=== PATIENT | male | born 1960 | race Caucasian/White ===

== ENCOUNTER → 2016-09-22 | Outpatient (CLI) | payer MEDICARE ==
[~2016-09-22] MED LIST: APRESOLINE 10MG10 MG PO; ASPIRIN 32325 MG/TAB PO; ASPIRIN 81M81 MG/TA2 PO; ASPIRIN E.C. 8181 MG PO; CEPHALEXIN500 M1 PO; COREG12.5 MG PO; ENALAPRIL2.5 MG PO; EPA FISH OIL1000 MG PO; LIPITOR80 MG PO; LIVALO PO; MEDROL 4MG DOSPA4 MG PO; MEDROL4 MG PO; METOPROLOL TART25 MG PO; METOPROLOL25 MG PO; NO HOME MEDICATIONS; NORCO 325 MG-51 TAB PO; PEPCID40 MG PO; PERCOCET 325 MG1 TA2 PO; PLAVIX 75MG TAB75 MG PO; PRAVACHOL 20MG20 MG PO; PRAVACHOL80 MG PO; PRAVASTATIN40 MG PO; ZESTRIL 10MG10 MG PO; ZESTRIL 20MG TA20 MG PO; ZYLOPRIM 100MG100 MG PO
[2016-09-22 11:27] LABS: CALCIUM 9.3 mg/dL (8.4-10.2); CREATININE, serum 0.95 mg/dL (0.66-1.25); POTASSIUM 4.2 mmol/L (3.4-5.0)
== END ==
LOC: COL.LAB 10:25
PROVIDERS: Internal Medicine Interventional Cardiology
DX: I50.22 Chronic systolic (congestive) heart failure (principal)

== ENCOUNTER → 2017-05-11 | Outpatient (CLI) | payer MEDICARE ==
[2017-05-11 11:18] LABS: CALCIUM 9.5 mg/dL (8.4-10.2); CHOLESTEROL RISK RATIO 7.2; CREATININE, serum 0.92 mg/dL (0.66-1.25); MAGNESIUM 1.8 mg/dL (1.6-2.3); POTASSIUM 4.1 mmol/L (3.4-5.0)
[2017-05-11 11:47] LABS: THYROID STIMULATING HORMONE 1.23 uIU/mL (0.465-4.680)
[2017-05-11 14:30] LABS: URIC ACID 8.1 mg/dL (3.5-8.5)
== END ==
LOC: COL.LAB 09:56
PROVIDERS: Internal Medicine Interventional Cardiology
DX: I50.22 Chronic systolic (congestive) heart failure (principal)

== ENCOUNTER 2017-09-04 20:17 | Emergency (ER) | payer MEDICARE ==
[~2017-09-04] VITALS: Ht 172.7 cm; Wt 122.7 kg
[2017-09-04 20:49] VITALS: TEMP 98
[2017-09-04] MEDS ORDERED: ENTRESTO 49 MG1 EACH PO (20:52)
[2017-09-04] MEDS ORDERED: ELIQUIS 5MG PO (20:52)
[2017-09-04 21:41] VITALS: BP 150/101; PULSE 79
== END 2017-09-04 21:40 | disposition home or self-care (01) ==
LOC: COL.ER 20:17
DX: S43.402A Unspecified sprain of left shoulder joint, initial encounter (principal); F41.9 Anxiety disorder, unspecified; I25.10 Atherosclerotic heart disease of native coronary artery without angina pectoris; Z95.5 Presence of coronary angioplasty implant and graft; Z98.890 Other specified postprocedural states; W18.39XA Other fall on same level, initial encounter; Y92.009 Unspecified place in unspecified non-institutional (private) residence as the place of occurrence of the external cause

== ENCOUNTER → 2019-10-11 | Outpatient (CLI) | payer MEDICARE ==
[~2019-10-11] MED LIST changes: +ELIQUIS 5MG PO; +ENTRESTO 49 MG1 EACH PO
[2019-10-11 10:14] LABS: BASO # 0.1 (0.0-0.2); BASO % 0.5 % (0.0-2.0); EOS # 0.1 (0.0-0.7); EOS % 0.6 % (0-4.0); GRAN % 65.1 % (42.2-75.2); LYMPH # 2.3 (1.2-3.4); LYMPH % 24.2 % (20.0-51.0); MEAN CELL VOLUME 89 fl (80.0-100.0); MEAN CORPUSCULAR HGB CONC 34 g/dl (33.0-37.0); MEAN PLATELET VOLUME 9.9 fl (7.4-10.4); MONO # 0.8 (0.1-0.6); MONO % 9.1 % (1.7-9.3); PLATELET COUNT 237 K/mm3 (130-400); REDCELL DISTRIBUTION WIDTH-CV 12.8 % (11.5-14.5)
[2019-10-11 10:17] LABS: CALCIUM 9.4 mg/dL (8.4-10.2); CREATININE, serum 1.03 (0.66-1.25); MAGNESIUM 1.9 mg/dL (1.6-2.3); POTASSIUM 4.2 mmol/L (3.4-5.0)
[2019-10-11 10:21] LABS: HEMOGLOBIN 18.2 g/dl (13.5-18.0); MEAN CORPUSCULAR HEMOGLOBIN 30 pg (27.0-31.0)
[2019-10-11 10:29] LABS: TROPONIN-I 0.032 ng/mL (0.000-0.035)
[2019-10-11 10:47] LABS: THYROID STIMULATING HORMONE 1.92 uIU/mL (0.465-4.680)
== END ==
LOC: COL.RAD 09:24
PROVIDERS: Internal Medicine Interventional Cardiology
DX: Z01.812 Encounter for preprocedural laboratory examination (principal); I50.22 Chronic systolic (congestive) heart failure; E55.9 Vitamin D deficiency, unspecified

== ENCOUNTER 2020-01-23 04:54 | Observation (INO) | payer MEDICARE ==
[~2020-01-23] VITALS: Ht 172.7 cm; Wt 116.1 kg
[2020-01-23 05:14] LABS: BASO # 0.1 (0.0-0.2); BASO % 0.5 % (0.0-2.0); EOS # 0.1 (0.0-0.7); EOS % 0.8 % (0-4.0); GRAN # 6.7 (1.4-6.5); HEMOGLOBIN 17.6 g/dl (13.5-18.0); LYMPH # 3.4 (1.2-3.4); LYMPH % 30.8 % (20.0-51.0); MEAN CELL VOLUME 90 fl (80.0-100.0); MEAN CORPUSCULAR HEMOGLOBIN 30 pg (27.0-31.0); MEAN CORPUSCULAR HGB CONC 33 g/dl (33.0-37.0); MEAN PLATELET VOLUME 10.3 fl (7.4-10.4); MONO # 0.8 (0.1-0.6); MONO % 7.4 % (1.7-9.3); PLATELET COUNT 211 K/mm3 (130-400); RED BLOOD COUNT 5.93 M/mm3 (4.20-5.60); REDCELL DISTRIBUTION WIDTH-CV 12.8 % (11.5-14.5)
[2020-01-23 05:20] LABS: INR 0.9 (0.8-3.0); PROTHROMBIN TIME 10.4 SECONDS (9.7-12.8)
[2020-01-23 05:21] LABS: HEMATOCRIT 53.4 % (42.0-52.0)
[2020-01-23 05:22] LABS: PARTIAL THROMBOPLASTIN TIME 32.6 SECONDS (26.0-37.0)
[2020-01-23 05:25] LABS: ALBUMIN 4.5 gm/dL (3.5-5.0); BILIRUBIN,TOTAL 0.6 mg/dL (0.0-1.0); CALCIUM 9.3 mg/dL (8.4-10.2); CREATININE, serum 1.06 (0.66-1.25); POTASSIUM 4.1 mmol/L (3.4-5.0); TOTAL PROTEIN 7.9 gm/dL (6.4-8.2)
[2020-01-23 05:41] LABS: TROPONIN-I 0.045 ng/mL (0.000-0.035)
--- NOTE | 2020-01-23 09:49 | NUR ---
Pt up to room 316, laying in bed upon entry, A&O, independent in room, on room air, on tele. Pt had tele off when this nurse entered room, reapplied. Pt denies chest pain at this time, denies SOB, N/V/D, abdominal pain, dizziness. Pt has LAC INT IV that flushes w/o difficulty. Pulses strong bilaterally. BS active, LS cta. Admission completed, pt uninterested in cares. Pt refused labs, refused vitals prior to leaving ER, allowed ILEANA Salgado to do inital. pt states he doesn't know what meds he takes, doesn't know who his PCP is. Cardio consult placed and this nuse informed pt of having stress test done today. Pt stated he didn't want to do it. This nurse has paged Suha toro/ cardio twice at this time, awaiting call back. No further needs at this time. Pt states he would like to go home.
[2020-01-23 09:55] VITALS: BP 122/67; PULSE 65; TEMP 98.1
[2020-01-23 09:57] VITALS: BP 122/67; PULSE 65; TEMP 98.1
--- NOTE | 2020-01-23 11:43 | NUR ---
This nurse spoke w/ hospitalist and Suha w/ cardiology. They are aware that pt refused Echo, labs and stress test. [facility] has been consulted and notified since the pt is a pt of theirs, they will see and follow up with pt. Pt stated he had Echo and stress test already a few months ago according to hospitalist. pt was more pleasant and cooperative w/ hospitalist than this nurse. Records from previous stress test and echo were obtained. this nurse called pts pharmacy and received med list. Pt has entresto and eliquis on list that was prescribed in 2019 but never filled. med list updated. Physicians aware.
[2020-01-23 11:47] VITALS: BP 127/63; PULSE 67; TEMP 98
[2020-01-23] MEDS ORDERED: TOPROL XL 50MG50 MG PO (11:49)
[2020-01-23] MEDS ORDERED: XARELTO20 MG PO (11:51)
[2020-01-23] MEDS ORDERED: ZYLOPRIM 100MG100 MG PO (11:52)
[2020-01-23] MEDS ORDERED: NITROSTAT0.4 MG/TAB SL (11:53)
--- NOTE | 2020-01-23 12:29 | NUR ---
Physicians rounded on pt, pt decided to leave AMA. Tele removed, LAC INT IV dc'd w/ catheter tip intact and no issues noted. AMA papers sigend, pt verbalized understanding.
== END 2020-01-23 12:30 | disposition left against medical advice (07) ==
LOC: COL.ER 04:54 → MEDICAL 07:16
PROVIDERS: Emergency Medicine; ADMIT Hospitalist
DX: R07.9 Chest pain, unspecified (principal); D72.829 Elevated white blood cell count, unspecified; I25.2 Old myocardial infarction; E78.5 Hyperlipidemia, unspecified; I10 Essential (primary) hypertension; G47.33 Obstructive sleep apnea (adult) (pediatric); I25.10 Atherosclerotic heart disease of native coronary artery without angina pectoris; Z95.5 Presence of coronary angioplasty implant and graft
CPT/HCPCS: G0378

== ENCOUNTER 2023-04-17 16:43 | Outpatient (RCR) | payer MEDICARE ==
[~2023-04-17 16:43] MED LIST changes: +NITROSTAT0.4 MG/TAB SL; +TOPROL XL 50MG50 MG PO; +XARELTO20 MG PO
== END 2023-05-14 | disposition home or self-care (01) ==
LOC: COL.CR
DX: I50.22 Chronic systolic (congestive) heart failure (principal)